=== PATIENT | male | born 1990 | race Two or more races ===

== ENCOUNTER 2020-12-13 15:51 | Emergency (ER) | payer OTHER ==
[~2020-12-13] VITALS: Ht 182.9 cm; Wt 86.2 kg
[2020-12-13] MEDS ORDERED: VISTARIL25 MG PO (17:42)
[2020-12-13] MEDS ORDERED: DICLOFENAC SODI75 MG PO (17:42)
== END 2020-12-13 17:45 | disposition home or self-care (01) ==
LOC: ER 15:51
DX: R07.89 Other chest pain (principal)

== ENCOUNTER 2024-03-23 09:31 | Emergency (ER) | payer OTHER ==
[~2024-03-23] VITALS: Ht 188 cm; Wt 88.5 kg
[~2024-03-23 09:31] MED LIST: DICLOFENAC SODI75 MG PO; INTESTINEX680 M1 PO; OMEPRAZOLE MAGN20 MG PO; VISTARIL25 MG PO
[2024-03-23] MEDS ORDERED: ADDERALL 10 MG10 MG PO (09:42)
[2024-03-23] MEDS ORDERED: 0.9 % SODIUM CHLORIDE 1,000 ML IV STA (09:59)
[2024-03-23 11:07] LABS: HEMATOCRIT 48.2 % (39.0-48.0); HEMOGLOBIN 16.4 g/dL (13-16.00); MEAN CELL VOLUME 81.3 fL (80.0-100.00); MEAN CORPUSCULAR HEMOGLOBIN 27.7 pg (27.00-32.0); PLATELET COUNT 209 K/uL (150-450); RED BLOOD COUNT 5.93 M/uL (4.00-6.00); RED CELL DISTRIBUTION WIDTH 14.5 % (11.5-14.5)
[2024-03-23 11:28] LABS: CALCIUM 9.3 mg/dL (8.5-10.1); CREATININE SERUM 1.41 mg/dL (0.70-1.30); GFR 57.2; POTASSIUM 4.06 mEq/L (3.5-5.1)
[2024-03-23 11:55] LABS: PH,URINE 5.5 (5.0-8.0); URINE APPEARANCE Clear; URINE BILIRRUBIN Negative (NEGATIVE); URINE BLOOD Trace; URINE COLOR Dark Yellow; URINE GLUCOSE Negative (NEGATIVE); URINE KETONE Trace (NEGATIVE); URINE LEUKOCYTE Negative; URINE NITRATE Negative
[2024-03-23 11:58] LABS: URINE BACTERIA 49.1 uL (0.0-1933); URINE CAST 3.66 uL (0.0-1.40); URINE RBC 31.7 uL (0.0-20.8); URINE WBC 8.3 uL (0.0-23.2)
[2024-03-23 12:37] LABS: URINE PROTEIN 100 (NEGATIVE)
== END 2024-03-23 14:20 | disposition home or self-care (01) ==
LOC: ER 09:32
PROVIDERS: Emergency Medicine
DX: K52.89 Other specified noninfective gastroenteritis and colitis (principal)

== ENCOUNTER 2024-03-26 03:48 | Emergency (ER) | payer OTHER ==
[~2024-03-26] VITALS: Ht 182.9 cm; Wt 72.6 kg
[~2024-03-26 03:48] MED LIST changes: +ADDERALL 10 MG10 MG PO
[2024-03-26] MEDS ORDERED: KETOROLAC TROMETHAMINE 30 MG VIAL IV STA (04:10)
[2024-03-26] MEDS ORDERED: MEPERIDINE HCL/PF 50 MG/ML VIAL IM STA (04:11)
[2024-03-26] MEDS ORDERED: PROMETHAZINE HCL 50 MG/ML AMPUL IM STA (04:12)
[2024-03-26] MEDS ORDERED: RINGERS SOLUTION,LACTATED 1,000 ML IV STA (04:13)
[2024-03-26] MEDS ORDERED: HYOSCYAMINE SULFATE 0.125 MG TAB.SUBL SL ONE (04:15)
[2024-03-26] MEDS ORDERED: KETOROLAC TROMETHAMINE 30 MG VIAL ONE (04:16)
[2024-03-26] MEDS ORDERED: HYOSCYAMINE SULFATE 0.125 MG TAB.SUBL ONE (04:17)
[2024-03-26] MEDS ORDERED: PROMETHAZINE HCL 50 MG/ML AMPUL IM ONE (04:17)
[2024-03-26 05:04] LABS: HEMATOCRIT 42.3 % (39.0-48.0); HEMOGLOBIN 14.2 g/dL (13-16.00); MEAN CORPUSCULAR HEMOGLOBIN 26.5 pg (27.00-32.0); MEAN CORPUSCULAR HGB CONC 33.6 g/dl (32.0-36.0); PLATELET COUNT 266 K/uL (150-450); RED BLOOD COUNT 5.35 M/uL (4.00-6.00)
[2024-03-26 05:33] LABS: CALCIUM 8.5 mg/dL (8.5-10.1); CREATININE SERUM 1.56 mg/dL (0.70-1.30); GFR 50.9; POTASSIUM 3.56 mEq/L (3.5-5.1)
[2024-03-26] MEDS ORDERED: OxyCODONE HCL/APAP UD (PERCOCET) PO STA (07:37)
== END 2024-03-26 10:57 | disposition home or self-care (01) ==
LOC: ER 03:48
DX: N20.1 Calculus of ureter (principal); R10.9 Unspecified abdominal pain; N20.0 Calculus of kidney; Z87.442 Personal history of urinary calculi

== ENCOUNTER 2025-04-19 21:25 | Emergency (ER) | payer OTHER ==
[~2025-04-19] VITALS: Ht 185.4 cm; Wt 90.7 kg
[2025-04-19] MEDS ORDERED: FAMOTIDINE/PF 20 MG in 0.9 % SODIUM CHLORIDE 8 ML IV PUSH STA (22:06)
[2025-04-19] MEDS ORDERED: ONDANSETRON HCL 2 MG/ML VIAL IV ONE (22:15)
[2025-04-19] MEDS ORDERED: 0.9 % SODIUM CHLORIDE 1,000 ML IV SCH (22:15)
[2025-04-19] MEDS ORDERED: KETOROLAC TROMETHAMINE 30 MG VIAL IV ONE (22:15)
[2025-04-19] MEDS ORDERED: KETOROLAC TROMETHAMINE 30 MG VIAL ONE (22:24)
[2025-04-19] MEDS ORDERED: ONDANSETRON HCL 2 MG/ML VIAL ONE (22:24)
[2025-04-19 22:30] LABS: BASO % 0.5 % (0.1-1.2); EOS # 0.04 (0.04-0.54); EOS % 0.4 % (0.7-7.0); LYMPH # 2.50 (1.18-3.74); LYMPH % 26.5 % (19.3-53.1); MEAN PLATELET VOLUME 8.90 fl (9.4-12.4); MONO # 0.62 (0.24-0.82); MONO % 6.6 % (4.7-12.5); NEUT # 6.20 (1.56-6.13); NEUT % 65.7 % (34.0-71.1); RED CELL DISTRIBUTION WIDTH 12.3 % (11.6-14.4)
[2025-04-19 22:57] LABS: ALT/SGPT 36.0 U/L (12-78); AST/SGOT 15.0 U/L (15-37); BILIRUBIN TOTAL 0.56 mg/dL (0.3-1.2); BUN CREA RATIO 13.0 (7.0-25.0); CREATININE SERUM 1.2 mg/dL (0.70-1.30); GFR 68.51; GLOBULINA 3.7 G/DL (2.4-3.5); GLUCOSE FASTING 88.0 mg/dL (65-100); OSMOLALITY SERUM 282.0 MOSM/KG (275-295)
[2025-04-19] MEDS ORDERED: CARAFATE1 GM PO (23:02)
[2025-04-19] MEDS ORDERED: PEPCID AC20 MG PO (23:02)
== END 2025-04-19 23:23 | disposition home or self-care (01) ==
LOC: ER 21:25
PROVIDERS: General Practice
DX: R10.13 Epigastric pain (principal); R10.9 Unspecified abdominal pain